=== PATIENT | female | born 2000 | race Caucasian/White ===

== ENCOUNTER → 2022-03-09 | Outpatient (CLI) | payer OTHER | END | disposition home or self-care (01) | LOC: RAD 13:44 | PROVIDERS: ATTEND Chiropractor Orthopedic | DX: M99.02 Segmental and somatic dysfunction of thoracic region (principal); M99.03 Segmental and somatic dysfunction of lumbar region ==

== ENCOUNTER 2022-04-25 12:26 | Emergency (ER) | payer OTHER ==
[~2022-04-25] VITALS: Ht 149.8 cm; Wt 95.3 kg
[2022-04-25 12:34] VITALS: BP 125/79
[2022-04-25] MEDS ORDERED: IBUPROFEN600 MG PO (12:49)
[2022-04-25] MEDS ORDERED: ZITHROMAX250 MG PO (12:49)
== END 2022-04-25 13:23 | disposition home or self-care (01) ==
LOC: ED 12:26
DX: H66.92 Otitis media, unspecified, left ear (principal)

== ENCOUNTER 2022-05-05 10:49 | Emergency (ER) | payer OTHER ==
[~2022-05-05 10:49] MED LIST: IBUPROFEN600 MG PO; ZITHROMAX250 MG PO
[2022-05-05 11:08] VITALS: BP 136/86
[2022-05-05] MEDS ORDERED: MECLIZINE HCL25 M2 PO (11:24)
[2022-05-05] MEDS ORDERED: AMOXICILLIN500 M2 PO (11:24)
[2022-05-05] MEDS ORDERED: PREDNISONE20 M1 PO (11:24)
[2022-05-06] MEDS ORDERED: CEFDINIR300 MG PO (20:20)
== END 2022-05-05 11:31 | disposition home or self-care (01) ==
LOC: ED 10:49
DX: H66.92 Otitis media, unspecified, left ear (principal); Z98.890 Other specified postprocedural states

== ENCOUNTER 2022-05-16 12:34 | Emergency (ER) | payer OTHER ==
[~2022-05-16] VITALS: Ht 149.8 cm; Wt 95.3 kg
[~2022-05-16 12:34] MED LIST changes: +AMOXICILLIN500 M2 PO; +CEFDINIR300 MG PO; +MECLIZINE HCL25 M2 PO; +PREDNISONE20 M1 PO
[2022-05-16 13:18] VITALS: BP 126/92
[2022-05-17] MEDS ORDERED: KETOROLAC10 MG PO (23:04)
[2022-05-17] MEDS ORDERED: MEDROL DOSEPAK4 MG PO (23:04)
== END 2022-05-16 15:19 | disposition home or self-care (01) ==
LOC: ED 12:34
DX: U07.1 COVID-19 (principal); Z88.1 Allergy status to other antibiotic agents

== ENCOUNTER 2022-05-17 18:43 | Emergency (ER) | payer OTHER ==
[~2022-05-17] VITALS: Wt 95.3 kg
[2022-05-17 18:54] VITALS: BP 138/88
[2022-05-17 22:18] LABS: BASO # 0.1 10*3/uL (0.0-0.1); BASO % 0.8 % (0.0-1.0); EOS # 0.2 10*3/uL (0.0-0.4); EOS % 2.1 % (1.0-4.0); HEMATOCRIT 39.7 % (37.0-47.0); LYMPH # 2.1 10*3/uL (1.3-4.4); LYMPH % 23.5 % (27.0-41.0); MEAN CELL VOLUME 75.2 fl (81.0-99.0); MEAN CORPUSCULAR HGB 22.5 pg (27.0-31.0); MEAN PLATELET VOLUME 9.7 fl (9.6-12.3); MONO # 1.4 10*3/uL (0.1-1.0); NEUT # 5.3 10*3/uL (2.3-7.9); NEUT % 58.4 % (47.0-73.0); PLATELET COUNT AUTOMATED 287 10*3/uL (130-400); RED BLOOD COUNT 5.28 10*6/uL (4.10-5.10); RED CELL DISTRI WIDTH 19.2 % (0-14.5); WHITE BLOOD COUNT 9.1 10*3/uL (4.8-10.8)
[2022-05-17 22:36] LABS: ALKALINE PHOSPHATASE 89 U/L (46-116); BUN 7 mg/dl (9-23); CHLORIDE 104 mmol/L (98-107); POTASSIUM 4.2 mmol/L (3.4-5.1); SGPT/ALT 21 U/L (10-49); TOTAL PROTEIN 7.3 gm/dL (6.0-8.0)
[2022-05-17] MEDS ORDERED: KETOROLAC10 MG PO (23:04)
[2022-05-17] MEDS ORDERED: MEDROL DOSEPAK4 MG PO (23:04)
== END 2022-05-17 23:41 | disposition home or self-care (01) ==
LOC: ED 18:43
PROVIDERS: Physician Assistant
DX: U07.1 COVID-19 (principal); Z88.1 Allergy status to other antibiotic agents

== ENCOUNTER 2022-07-02 21:26 | Emergency (ER) | payer OTHER ==
[~2022-07-02] VITALS: Ht 157.4 cm; Wt 103.0 kg
[~2022-07-02 21:26] MED LIST changes: +KETOROLAC10 MG PO; +MEDROL DOSEPAK4 MG PO
[2022-07-02 21:36] VITALS: BP 141/93
== END 2022-07-02 23:18 | disposition home or self-care (01) ==
LOC: ED 21:26
DX: B27.90 Infectious mononucleosis, unspecified without complication (principal); Z88.1 Allergy status to other antibiotic agents

== ENCOUNTER 2022-07-03 18:53 | Emergency (ER) | payer OTHER ==
[~2022-07-03] VITALS: Ht 149.8 cm; Wt 97.5 kg
[2022-07-03 19:00] VITALS: BP 146/78
[2022-07-03 20:05] LABS: BILIRUBIN Negative (Negative); BLOOD 3+ (Negative); CLARITY Turbid (Clear); COLOR Dark Yellow (Yellow); GLUCOSE Negative (Negative); KETONE Trace (Negative); LEUKO ESTERASE Trace (Negative); NITRITE Negative (Negative); PH 5.5 (4.5-8.0); SPECIFIC GRAVITY >= 1.030 (1.001-1.030)
[2022-07-03 20:14] LABS: BACTERIA 2+
== END 2022-07-03 20:29 | disposition home or self-care (01) ==
LOC: ED 18:53
PROVIDERS: Internal Medicine
DX: B27.90 Infectious mononucleosis, unspecified without complication (principal); R31.9 Hematuria, unspecified; Z88.1 Allergy status to other antibiotic agents

== ENCOUNTER → 2022-07-14 | Day surgery (SDC) | payer OTHER ==
[~2022-07-14] VITALS: Ht 149.9 cm; Wt 97.5 kg
[2022-07-14 08:11] VITALS: BP 131/82
[2022-07-14 08:47] VITALS: BP 125/78
[2022-07-14 09:02] VITALS: BP 128/86
[2022-07-14 09:17] VITALS: BP 123/82
[2022-07-14 09:32] VITALS: BP 127/80
== END | disposition home or self-care (01) ==
LOC: SDC 07-09 14:00
PROVIDERS: ATTEND Specialist
DX: H65.493 Other chronic nonsuppurative otitis media, bilateral (principal); F41.9 Anxiety disorder, unspecified; F32.A Depression, unspecified

== ENCOUNTER 2022-07-16 20:19 | Emergency (ER) | payer OTHER ==
[~2022-07-16] VITALS: Ht 149.8 cm; Wt 97.5 kg
[2022-07-16 20:30] VITALS: BP 150/108
[2022-07-16] MEDS ORDERED: ZITHROMAX250 MG PO (21:11)
== END 2022-07-16 21:17 | disposition home or self-care (01) ==
LOC: ED 20:19
DX: Z96.22 Myringotomy tube(s) status (principal); F41.9 Anxiety disorder, unspecified; F32.A Depression, unspecified; Z88.1 Allergy status to other antibiotic agents; Z98.890 Other specified postprocedural states

== ENCOUNTER → 2022-08-09 | Day surgery (SDC) | payer OTHER ==
[~2022-08-09] VITALS: Ht 149.8 cm; Wt 97.5 kg
[2022-08-09 08:54] VITALS: BP 117/67
[2022-08-09 09:56] VITALS: BP 122/80
[2022-08-09 10:11] VITALS: BP 134/78
[2022-08-09 10:26] VITALS: BP 137/88
[2022-08-09 10:41] VITALS: BP 143/91
== END ==
LOC: SDC 08-05 14:45
PROVIDERS: ATTEND Specialist
DX: H83.2X1 Labyrinthine dysfunction, right ear (principal); H68.101 Unspecified obstruction of Eustachian tube, right ear; F41.9 Anxiety disorder, unspecified; F32.A Depression, unspecified; Z98.890 Other specified postprocedural states; Z88.1 Allergy status to other antibiotic agents

== ENCOUNTER 2022-08-24 08:24 | Emergency (ER) | payer OTHER ==
[~2022-08-24] VITALS: Ht 149.8 cm; Wt 97.5 kg
== END 2022-08-24 11:00 | disposition home or self-care (01) ==
LOC: ED 08:24
DX: M79.672 Pain in left foot (principal); F41.9 Anxiety disorder, unspecified; F32.A Depression, unspecified; Z88.1 Allergy status to other antibiotic agents; Z98.890 Other specified postprocedural states

== ENCOUNTER 2022-09-18 11:15 | Emergency (ER) | payer OTHER ==
[~2022-09-18] VITALS: Ht 124.4 cm; Wt 97.5 kg
[2022-09-18 11:24] VITALS: BP 137/64
[2022-09-18] MEDS ORDERED: NAPROSYN500 MG PO (12:28)
== END 2022-09-18 12:52 | disposition home or self-care (01) ==
LOC: ED 11:15
DX: M72.2 Plantar fascial fibromatosis (principal); F41.9 Anxiety disorder, unspecified; F32.A Depression, unspecified; Z88.1 Allergy status to other antibiotic agents; Z98.890 Other specified postprocedural states

== ENCOUNTER 2022-10-18 21:06 | Emergency (ER) | payer OTHER ==
[~2022-10-18] VITALS: Wt 97.5 kg
[~2022-10-18 21:06] MED LIST changes: +NAPROSYN500 MG PO
[2022-10-18 21:15] VITALS: BP 141/96
[2022-10-18] MEDS ORDERED: NYSTATIN CREAM15 GM T (23:02)
== END 2022-10-18 23:11 | disposition home or self-care (01) ==
LOC: ED 21:06
DX: B35.9 Dermatophytosis, unspecified (principal); R11.10 Vomiting, unspecified; F41.9 Anxiety disorder, unspecified; F32.A Depression, unspecified; Z88.1 Allergy status to other antibiotic agents

== ENCOUNTER → 2022-10-27 | Outpatient (CLI) | payer OTHER ==
[~2022-10-27] MED LIST changes: +NYSTATIN CREAM15 GM T
== END | disposition home or self-care (01) ==
LOC: US 10-26 10:00
PROVIDERS: ATTEND Nurse Practitioner Women's Health
DX: N63.21 Unspecified lump in the left breast, upper outer quadrant (principal)